=== PATIENT | female | born 1950 | race Caucasian/White ===

== ENCOUNTER → 2019-04-20 | Day surgery (SDC) | payer OTHER ==
--- NOTE | 2019-04-20 10:46 | RAD REPORT ---
EXAM DESCRIPTION: US - Fine Needle Asp Breast Guide - 04/20/2019 9:40 am CLINICAL HISTORY: Mass upper-outer quadrant right breast COMPARISON: Breast ultrasound April 11, 2019, mammograms April 11 and September 23, 2018. FINDINGS: The patient presents for ultrasound-guided breast FNA. The procedure, risks and alternativ es were discussed with the patient in detail. After answering all questions, oral and written consen t were obtained. Time out procedure was performed . The patient had no contraindicated allergy or medication history. Preliminary imaging again identified the 8 millimeter mass in question. The skin was prepped and raul ped in the usual sterile fashion. Skin and deeper tissues were anesthetized with 1 percent lidocaine . Under direct sonographic visualization, the 22 gauge needle was advanced. Needle tip penetrated the mass. On aspiration, the mass fully collapse with no remnant solid or cystic component identifiable. The aspirated fluid was retained for histology/cytology evaluation. At the conclusion of the procedure, there was no evidence for bleeding in the breast. Sterile bandage was placed to the puncture site. Post-procedure care and precaution instructions were given to the p atient. IMPRESSION: Successful ultrasound-guided aspiration of the complex cyst upper outer quadrant right b reast. Aspirated fluid was retained for cytology/histology evaluation.
== END ==
LOC: FNA 08:00
PROVIDERS: ATTEND Surgery
DX: N63.11 Unspecified lump in the right breast, upper outer quadrant (principal)
CPT/HCPCS: 10005; 76942; 88108